=== PATIENT | female | born 1990 | race Caucasian/White ===

== ENCOUNTER 2016-12-25 01:09 | Emergency (ER) | payer MEDICAID ==
--- NOTE | 2016-12-25 19:43 | ER ---
ADMIT: 12/25/2016 RM/LOC: ER [facility] MR#: [id number] [address] [facility] [place], [place] [id number] YOANDY BABCOCK [address] [place] [address] Emergency Room Report SEX: F AGE: 26 : 1990 DATE: 12/25/2016 The patient is a 26-year-old female with 2-week history of left upper quadrant and bilateral lower quadrant abdominal pain without nausea, fevers, chills, or urinary symptoms. The patient is status post cholecystectomy, pain state is dissimilar. Exam is remarkable for nontoxic, afebrile, obese female. Tender left upper and bilateral lower quadrants without mass or megaly. Bowel sounds hypoactive. CT shows no acute findings. Hemoglobin 11.9, lactic 1.0, CRP 0.74, lipase 841, HCG negative. UA, 2 WBCs and RBCs. The patient was given a liter of fluid, Zofran, Toradol, Dilaudid, and Protonix with improvement. Advised low- fat low-protein diet. Follow up with Family Practice for further interventions. Ag Cisneros MD/ rich JOB #: [id number] CC: Ag Cisneros MD, Attending Physician . Family Practice, PRACT
== END 2016-12-25 04:00 | disposition home or self-care (01) ==
LOC: ER 01:09
DX: K86.1 Other chronic pancreatitis (principal); K21.9 Gastro-esophageal reflux disease without esophagitis; Z90.49 Acquired absence of other specified parts of digestive tract; Z79.899 Other long term (current) drug therapy

== ENCOUNTER 2017-01-03 09:47 | Emergency (ER) | payer MEDICAID ==
--- NOTE | 2017-01-06 16:40 | ER ---
ADMIT: 01/03/2017 RM/LOC: ER [facility] MR#: [id number] [address] [place], [place] [id number] YOANDY BABCOCK [address] [place] [address] Emergency Room Report SEX: F AGE: 26 : 1990 DATE: 01/03/2017 For chief complaint, history of present illness, past medical history, medications, allergies, review of systems, including physical exam, please see my T-sheet. INTERIM HISTORY: The patient is a 26-year-old white female, who was seen about a week ago for the same type of symptoms here in the Emergency Department. Had a complete workup which showed some mild elevated pancreatic enzymes. She was discharged to home. She followed up with Dr. Gurpreet Pulido. It sounds like everything was then fine. She has had this persistent pain for approximately 4 weeks. She has a scheduled appointment with the GI specialist in [place] coming up in January. The patient reports that she did vomit last night. She has had her gallbladder out back in 2014. PHYSICAL EXAMINATION: Vital signs are stable. She is obese. Nonspecific abdominal discomfort. No guarding. No rebound. Bowel sounds are present x4 quadrants. She is nondistressed lying in the exam room. LABORATORY EVALUATION: Including a CBC, CMP, lipase. Urine was not obtained and ultrasound. Labs are all within normal limits including a normal lipase of 100. Electrolytes are normal. LFTs are normal. CBC is normal. The patient was given Zofran here in the emergency room for nausea which did help. She continued to complain of discomfort and was given Toradol 30 mg IM. Ultrasound shows no acute process, there is a surgically absent gallbladder, but otherwise nothing acute. Common bile duct is within normal limits. Included in my differential would be irritable bowel, persistent pancreatitis, constipation related to her tramadol use that she uses chronically for her fibromyalgia, could be pyelonephritis, but that is excluded with a normal WBC count and no urinary symptoms. The plan for followup with Gastroenterology, I think it would be reasonable to try a course of Bentyl to see if this is related more to abdominal cramping, she is agreeable to this. IMPRESSION: Abdominal pain, nonspecific of the left upper quadrant. Home, rest, activity as tolerated. Diet as tolerated. Avoid things are going to be aggravating. Continue on otherwise home medications. Return to the Emergency Department if symptoms or problems persist or worsen. The patient is in stable condition. BONY Arroyo / Jaxon Colon MD / rich JOB #: [id number] CC: Jaxon Colon MD, Attending Physician Ludwig Pulido MD, Family Physician
== END 2017-01-03 12:18 | disposition home or self-care (01) ==
LOC: ER 09:47
DX: R10.12 Left upper quadrant pain (principal); Z79.899 Other long term (current) drug therapy